=== PATIENT | female | born 1935 | race Caucasian/White ===

== ENCOUNTER 2025-05-16 18:38 | Emergency (ER) | payer SELFPAY ==
[~2025-05-16 18:38] MED LIST: Iopamidol 370 76% 100 ML VIAL ONE
[2025-05-16 19:03] LABS: #Basophils 0.0 thou/uL (0.0-0.2); #Eosinophils 0.0 thou/uL (0.0-0.7); #Lymphocytes 0.2 thou/uL (1.20-3.40); #Monocytes 0.5 thou/uL (0.11-0.59); #Neutrophils 4.4 thou/uL (1.40-6.50); %Basophils 0.6 % (0.0-1.0); %Eosinophils 0.0 % (0.0-10.0); %Lymphocytes 3.5 % (21.0-51.0); %Monocytes 8.9 % (0.0-10.0); %Neutrophils 87.0 % (42.0-75.0); Hematocrit 32.1 % (36.0-47.0); Hemoglobin 10.0 g/dL (12.0-16.0); Mean Corpuscular Hemoglobin 29.0 pg (27.0-31.0); Mean Corpuscular Volume 93.0 fl (78.0-98.0); Platelet Adequacy Comment Appears Decreased; Platelet Count 119 10x3/uL (130-400); Red Blood Cell (RBC) Count 3.46 mill/uL (4.20-5.40); White Blood Cell (WBC) Count 5.0 10x3/uL (4.8-10.8)
[2025-05-16] MEDS ORDERED: Aspirin 325 MG TAB ONE (19:05)
[2025-05-16] MEDS ORDERED: Acetaminophen 500 MG TAB ONE (19:06)
[2025-05-16 19:13] LABS: ALT (SGPT) 463 U/L (Less than 34); AST (SGOT) 683 U/L (11-34); Albumin 3.6 g/dL (3.1-4.5); Alkaline Phosphatase 116 U/L (40-110); Anion Gap 16 mmol/L (10-20); BUN (Urea Nitrogen) 25 mg/dL (9.8-20.1); Bilirubin, Total 0.7 mg/dL (0.3-1.2); Calc. Creatinine Clearance 0 mL/min (70-130); Calcium 8.0 mg/dL (7.8-10.44); Carbon Dioxide 24 mmol/L (23-31); Chloride 103 mmol/L (98-107); Globulin 2.9 g/dL (2.4-3.5); Glucose 133 mg/dL (83-110); Lipase 12 U/L (8-78); Potassium 3.7 mmol/L (3.5-5.1); Sodium 139 mmol/L (136-145)
[2025-05-16 19:14] LABS: Troponin I 0.051 ng/mL (< 0.028)
[2025-05-16 20:29] LABS: Glucose, Urine (Dipstick) Negative (Negative); Leukocyte Negative (Negative); Protein, Urine (Dipstick) 30 mg/dL (Neg-Trace); Specific Gravity, Urine 1.010 (1.005-1.030)
[2025-05-16 20:32] LABS: Bacteria/HPF Rare-Few HPF (None Seen); CAUTI Indications for Culture Fever or rigors; RBC/HPF 0-3 HPF (0-3); WBC/HPF None Seen HPF (0-3)
[2025-05-16 20:33] LABS: Urine Culture Reflex No No
[2025-05-17 15:55] LABS: Hep A IgM AB NONREACTIVE (NonReactive); Hep A IgM S/CO 0.25 S/CO (0-0.79); Hep B Core IgM Index 0.08 S/CO (0-0.79); Hep B Surf Ag NONREACTIVE S/CO (NonReactive); Hep C IgG Ab NONREACTIVE S/CO (NonReactive); Hep C Index 0.09 S/CO (0-0.79)
== END 2025-05-16 22:36 | disposition home or self-care (01) ==
LOC: BURERS 18:38
DX: B34.9 Viral infection, unspecified (principal); R41.82 Altered mental status, unspecified; R74.01 Elevation of levels of liver transaminase levels; R11.2 Nausea with vomiting, unspecified; I10 Essential (primary) hypertension
CPT/HCPCS: 36416; 51701; 70450; 70496; 70498; 71045; 80053; 80074; 81001; 83605; 83690; 84443; 84484; 85025; 87428; 93005; 96360; Q9967